=== PATIENT | female | born 1970 | race African-American/Black ===

== ENCOUNTER 2018-01-30 08:43 | Day surgery (SDC) | payer OTHER ==
[2018-01-27 13:47] VITALS: BMI 51.2
[2018-01-30] MEDS ORDERED: MIDAZOLAM HCL 2 MG/2 ML SINGLE DOSE VIAL ONE (10:03)
[2018-01-30] MEDS ORDERED: PROPOFOL 20 ML ONE (10:03)
[2018-01-30] MEDS ORDERED: BUPIVACAINE HCL/PF 2.5 MG/ML - 30 ML VIAL IJ ONE (10:07)
[2018-01-30] MEDS ORDERED: ceFAZolin SODIUM 1 GM VIAL ONE (10:23)
[2018-01-30] MEDS ORDERED: ONDANSETRON 4 MG/2 ML VIAL ONE (10:23)
[2018-01-30] MEDS ORDERED: KETOROLAC TROMETHAMINE 30 MG/1 ML VIAL ONE (10:23)
[2018-01-30] MEDS ORDERED: DEXAMETHASONE SOD PHOSPHATE 4 MG/1 ML VIAL ONE (10:23)
[2018-01-30] MEDS ORDERED: LIDOCAINE HCL/PF 2% SDV 5ML VIAL ONE (10:23)
[2018-01-30] MEDS ORDERED: LIDOCAINE HCL 2% JELLY (5 ML/TUBE) ONE (10:23)
[2018-01-30] MEDS ORDERED: PROMETHAZINE HCL 25 MG/1 ML VIAL IVPUSH PRN (11:16)
[2018-01-30] MEDS ORDERED: ONDANSETRON 4 MG/2 ML VIAL IVPUSH PRN (11:16)
[2018-01-30] MEDS ORDERED: oxyCODONE HCL 5 MG TABLET PO PRN ×2 (11:16)
[2018-01-30] MEDS ORDERED: oxyCODONE HCL 5 MG TABLET ONE (13:44)
[2018-01-30 15:00] VITALS: TEMP 97.8
[2018-01-30 15:01] VITALS: BP 135/74; PULSE 71
--- NOTE | 2018-02-01 19:27 | OP ---
DATE OF OPERATION: 01/30/2018 LOCATION: [facility]. SURGEON: Luis Fernando Lance MD FUND ACCOUNTING MANAGER: SAMMI Lowe PREOPERATIVE DIAGNOSES: 1. Right knee medial and lateral meniscal tear. 2. Right knee cartilage injury, right knee synovitis. PROCEDURE: 1. Right knee arthroscopy, partial meniscectomy of medial and lateral meniscus, CPT code 00022. 2. Right knee arthroscopy with chondroplasty and abrasion-plasty, CPT code 05710. 3. Right knee arthroscopy with synovectomy, CPT code 29700. FINDINGS: 1. Medial meniscus body and posterior horn tear. 2. Lateral meniscus body and posterior horn tear. 3. Synovitis, patellofemoral, medial and lateral notch area. 4. Anterior grade 2 cartilage injury, medial tibial plateau. 5. ACL and PCL intact. 6. Minimal cartilage change, lateral joint. 7. Central grade 2 to 3 cartilage injury, grade 2 changes, patella and patellofemoral trochlea, with a small area of grade 4 changes of anterior patellofemoral trochlea and lateral facet. PROCEDURE: Informed consent was obtained. The patient came to the operating room, where the lower extremity was prepped and draped in a sterile fashion. A tourniquet was placed on the upper thigh, but not inflated. Using standard arthroscopic technique, a lateral incision and portal was made to allow for introduction of the camera into the suprapatellar bursa. This was then taken to the medial joint line, where under direct visualization, a medial incision and portal was made. Excessive synovium noted in the medial, lateral and patellofemoral and notch area was removed by an upbiter, shaver and Bovie cautery. This was found to bring in inflammatory tissue into the joint surface, a source of pain and dysfunction. Probing of the medial and lateral meniscus found tears, as described in the findings. These were removed with the upbiter and shaver and taken back to a stable rim. Grade 2 to 3 degenerative changes were treated with a chondroplasty, removing all flaking surfaces with low-setting Bovie along the periphery to prevent further flaking. Grade 4 changes, as noted, were treated with an abrasoplasty, creating a bleeding surface at the bone/cartilage interface. Aggressive debridement with shaver/marcella created bleeding surface. Micro fracture also done when indicated in findings. All areas of the knee were once again reexamined. The knee was then drained and a single suture was placed in all portals. A sterile dressing was placed and the patient was transferred to the recovery room without complication. LUIS FERNANDO LANCE M.D. [id number]
== END 2018-01-30 14:05 | disposition home or self-care (01) ==
LOC: FASU 08:43
PROVIDERS: ATTEND Orthopaedic Surgery
PROC: 0SBC4ZZ Excision of Right Knee Joint, Percutaneous Endoscopic Approach (ICD-10-PCS; 2018-01-30)
PROC: 0SBC4ZZ Excision of Right Knee Joint, Percutaneous Endoscopic Approach (ICD-10-PCS; 2018-01-30)
PROC: 0SBC4ZZ Excision of Right Knee Joint, Percutaneous Endoscopic Approach (ICD-10-PCS; principal; 2018-01-30 10:31)
DX: S83.241A Other tear of medial meniscus, current injury, right knee, initial encounter (principal); S83.281A Other tear of lateral meniscus, current injury, right knee, initial encounter; M65.861 Other synovitis and tenosynovitis, right lower leg; X58.XXXA Exposure to other specified factors, initial encounter; Y93.9 Activity, unspecified; Y92.9 Unspecified place or not applicable
CPT/HCPCS: 84703; 94760